=== PATIENT | female | born 1975 | race Caucasian/White ===

== ENCOUNTER 2018-02-16 06:51 | Day surgery (SDC) | payer OTHER ==
[~2018-02-16 06:51] MED LIST: SYNTHROID112 MCG
[2018-02-16] MEDS ORDERED: CODE1TAB37 PO (11:06)
[2018-02-16] MEDS ORDERED: DOXYCYCLINE HY100 MG PO (11:06)
== END 2018-02-16 13:50 | disposition home or self-care (01) ==
LOC: CIR.AMB 06:51
DX: N92.0 Excessive and frequent menstruation with regular cycle (principal); N84.0 Polyp of corpus uteri